=== PATIENT | male | born 1970 | race Caucasian/White ===

== ENCOUNTER 2016-08-14 08:55 | Day surgery (SDC) | payer OTHER ==
[~2016-08-14] VITALS: Ht 185.4 cm; Wt 113.0 kg
[~2016-08-14 08:55] MED LIST: LACTATED RINGERS 1,000 ML IV SCH; SODIUM CHLORIDE FLUSH 3 ML SYR IV SCH
[2016-08-14 09:14] VITALS: BP 135/89
[2016-08-14] MEDS ORDERED: SCOPOLAMINE 1.5 MG (TRANSDERM-SCOP) PATCH TD ONE (09:25)
[2016-08-14] MEDS ORDERED: ALFENTANIL 1,000 MCG/2 ML AMP IV ONE (09:30)
[2016-08-14] MEDS: OXYMETAZOLINE 0.05% NASAL SPRAY (AFRIN) 15 ML BTL SCH ×2 (09:33→09:41)
[2016-08-14] MEDS ORDERED: DEXAMETHASONE 10 MG/ML (DECADRON) VIAL ONE (10:20)
[2016-08-14] MEDS ORDERED: diphenhydrAMINE 50 MG/ML INJ (BENADRYL) ONE (10:20)
[2016-08-14] MEDS ORDERED: METOCLOPRAMIDE 10 MG/2 ML (REGLAN) VIAL ONE (10:20)
[2016-08-14] MEDS ORDERED: LIDOCAINE/EPINEPHRINE 1% 1:100,000 (XYLOCAINE) 30 ML VIAL INJ ONE (10:20)
[2016-08-14] MEDS ORDERED: BACITRACIN/POLYMYXIN OINTMENT 1 PACKET TOP ONE (10:20)
[2016-08-14] MEDS ORDERED: ONDANSETRON 2 MG/ML (Z0FRAN) 2 ML VIAL ONE ×2 (10:20→11:46)
[2016-08-14] MEDS ORDERED: OXYMETAZOLINE 0.05% NASAL SPRAY (AFRIN) 15 ML BTL ONE (10:20)
[2016-08-14] MEDS ORDERED: TRIAMCINOLONE ACET 40 MG/ML (KENALOG-40) 1 ML VIAL ONE (11:53)
[2016-08-14 12:32] VITALS: BP 104/59
[2016-08-14 12:54] VITALS: BP 124/80
[2016-08-14] MEDS ORDERED: ACETAMINOPHEN/CODEINE 300MG/30 MG (TYLENOL #3) TABLET PO PRN (12:55)
[2016-08-14] MEDS ORDERED: D5 1/2 NS W/KCL 20 MEQ/L 1,000 ML IV SCH (12:55)
[2016-08-14] MEDS ORDERED: ONDANSETRON 2 MG/ML (Z0FRAN) 2 ML VIAL IV PRN (12:55)
[2016-08-14 13:24] VITALS: BP 132/82
[2016-08-14] MEDS ORDERED: HYPERTONIC SALINE IRRIGATION 1000 ML BTL IR SCH (21:00)
== END 2016-08-14 13:30 | disposition home or self-care (01) ==
LOC: ASC 08:55
PROVIDERS: ATTEND Otolaryngology
DX: J32.2 Chronic ethmoidal sinusitis (principal); J32.0 Chronic maxillary sinusitis; J32.1 Chronic frontal sinusitis; J33.9 Nasal polyp, unspecified; J34.3 Hypertrophy of nasal turbinates
CPT/HCPCS: 30130; 31030; 31255; 87070; 87075; J1100; J1200; J2765; J3301; J7120